=== PATIENT | female | born 1975 | race Hispanic/Latino ===

== ENCOUNTER 2018-09-13 15:45 | Emergency (ER) | payer BC ==
[~2018-09-13] VITALS: Ht 170.2 cm; Wt 63.5 kg
[~2018-09-13 15:45] MED LIST: CALCIPOTRIENE60 G1 TOP; CLOBETASOL1 EA/15 GM TOP; FLUOCINONIDE-E15 GM TOP; FLUOXETINE HCL20 MG PO; KETOROLAC TROME10 MG PO; MEDROL4 MG/DOSE-; MEDROL4 MG/DOSE- PO; OTEZLA PO; SULFASALAZINE500 MG PO; TYLENOL WITH C1 EACH PO; VITAMIN D400 UNIT PO
--- NOTE | 2018-09-13 16:43 | Diagnostic Imaging Report ---
Exam: Left elbow 3 views History: Pain Comparison: None. Findings: No fracture or malalignment. Elbow joint effusion. Soft tissues otherwise unremarkable. Impression: No acute osseous abnormality Elbow joint effusion without displaced fracture. Recommend follow-up radiograph in one week or MRI of the elbow. Signed by: Dr. Messi Gómez M.D. on 09/13/2018 4:40 PM
--- NOTE | 2018-09-13 16:44 | Diagnostic Imaging Report ---
Exam: Left wrist 3 views History: Pain Comparison: None. Findings: No fracture or malalignment. Joint spaces preserved. Soft tissue swelling. Impression: Soft tissue swelling without fracture Signed by: Dr. Messi Gómez M.D. on 09/13/2018 4:41 PM
== END 2018-09-13 17:23 | disposition home or self-care (01) ==
LOC: FSED 15:45
DX: S50.02XA Contusion of left elbow, initial encounter (principal); M25.532 Pain in left wrist; W01.0XXA Fall on same level from slipping, tripping and stumbling without subsequent striking against object, initial encounter; Y92.89 Other specified places as the place of occurrence of the external cause; R03.0 Elevated blood-pressure reading, without diagnosis of hypertension; L40.50 Arthropathic psoriasis, unspecified
CPT/HCPCS: 99284